=== PATIENT | female | born 1950 | race Two or more races ===

== ENCOUNTER 2023-05-18 15:55 | Inpatient (IN) | payer OTHER ==
[~2023-05-18] VITALS: Ht 165.1 cm; Wt 48.5 kg
[2023-05-23] MEDS ORDERED: TRAM1TAB98 PO (09:22)
[2023-05-23] MEDS ORDERED: DICY20TA PO (09:23)
[2023-05-23] MEDS ORDERED: LEVOFLOXACIN500 MG PO (09:24)
== END 2023-05-23 11:48 | disposition home or self-care (01) | DRG 334 ==
LOC: O/R 05-22 05:35 → SURG 05-22 05:35
PROVIDERS: ADMIT Surgery; ATTEND Surgery
PROC: 0DBNFZZ Excision of Sigmoid Colon, Via Natural or Artificial Opening With Percutaneous Endoscopic Assistance (ICD-10-PCS; 2023-05-22)
PROC: 0DUR0JZ Supplement Anal Sphincter with Synthetic Substitute, Open Approach (ICD-10-PCS; 2023-05-22)
PROC: 3E0T3BZ Introduction of Anesthetic Agent into Peripheral Nerves and Plexi, Percutaneous Approach (ICD-10-PCS; 2023-05-22)
PROC: 0DBP0ZZ Excision of Rectum, Open Approach (ICD-10-PCS; principal; 2023-05-22 09:00)
DX: K62.3 Rectal prolapse (principal); R15.9 Full incontinence of feces; Z20.822 Contact with and (suspected) exposure to COVID-19